=== PATIENT | female | born 1945 | race Caucasian/White ===

== ENCOUNTER → 2016-12-09 | Outpatient (CLI) | payer OTHER ==
[~2016-12-09] MED LIST: ASPI325T39 PO; SIMV10TA2 PO
--- NOTE | 2016-12-09 16:38 | MAMMOGRAPHY REPORT ---
BILATERAL DIGITAL SCREENING MAMMOGRAM WITH CAD: 12/09/2016 CLINICAL HISTORY: Routine screening examination. TECHNIQUE: Bilateral CC and MLO views were obtained. Current study was also evaluated with a Comput er Aided Detection (CAD) system. COMPARISON: Comparison is made to exams dated: 12/07/2015 mammogram, 12/05/2014 mammogram - [facility], and 11/22/2013 mammogram. BREAST COMPOSITION: The tissue of both breasts is heterogeneously dense, which may obscure small ma sses. FINDINGS: There are mild vascular calcifications in the breasts. A nodular asymmetry in the medial left breast appears similar on all available prior mammograms dating back to at least 03/08/2010, t herefore likely benign. No new suspicious mass, architectural distortion or cluster of microcalcifi cations is seen. IMPRESSION: ACR BI-RADS CATEGORY 1: NEGATIVE There is no mammographic evidence of malignancy. A 1 year screening mammogram is recommended. The p atient will receive written notification of the results. Approximately 10% of breast cancers are not detected with mammography. A negative mammographic repor t should not delay biopsy if a clinically suggestive mass is present. Gladys Woodard M.D. ay/:12/09/2016 16:01:06 Quality Control Associate: Trudi MORRIS(Elaine)(Naren), [facility] letter sent: Normal 1/2 BI-RADS Code: ACR BI-RADS Category 1: Negative
== END | disposition home or self-care (01) ==
LOC: C.MAMM 10:24
PROVIDERS: ATTEND Family Medicine
DX: Z12.31 Encounter for screening mammogram for malignant neoplasm of breast (principal)

== ENCOUNTER → 2016-12-09 | Outpatient (CLI) | payer OTHER ==
--- NOTE | 2016-12-09 12:55 | DIAGNOSTIC IMAGING REPORT ---
CT OF THE CHEST WITHOUT IV CONTRAST CLINICAL HISTORY: Multiple pulmonary nodules. COMPARISON STUDY: Chest CT December 16, 2015. CT DOSE: 262.40 mGycm TECHNIQUE: Axial images of the chest were obtained without IV contrast. Images were reviewed in the axial, sagittal, and coronal planes. IV contrast was not administered for this examination. FINDINGS: No enlarged axillary, mediastinal or hilar lymph nodes are present. The heart is mildly enlarged. This extensive coronary artery calcification. There is mitral annular calcification. There is no pericardial effusion. Groundglass opacity suggest atelectasis. Several pulmonary nodules are unchanged since CT of December 16, 2015. These include a 7 mm right middle lobe nodule shown on image 135 of 271, a 4 mm left lower lobe nodule shown image 177 and a 3 mm left lower lobe nodule shown image 179. A partially calcified subpleural 4 mm right lower lobe nodule is unchanged. There are no new nodules. Central airways are patent. Bony thorax and upper abdomen are unremarkable on this unenhanced study. IMPRESSION: No change in several pulmonary nodules since exam of December 16, 2015. These are low suspicion but remain indeterminate and a follow-up chest CT in one year is recommended. Electronically signed by: Liu San M.D. 12/09/2016 12:54 PM Dictated Date/Time: 12/09/2016 12:49 PM
== END | disposition home or self-care (01) ==
LOC: C.CTS 11:12
PROVIDERS: ATTEND Family Medicine
DX: R91.8 Other nonspecific abnormal finding of lung field (principal); Z12.31 Encounter for screening mammogram for malignant neoplasm of breast

== ENCOUNTER → 2017-08-31 | Outpatient (CLI) | payer OTHER ==
[2017-08-31 12:30] LABS: BASO % 1.3 %; BASO ABS # 0.07 K/uL (0-0.2); COMPLETE YES; EOS % 1.9 %; IG% 0.2 %; LYMPH % 28.5 %; MEAN CELL VOLUME 93.1 fL (80-100); MEAN CORPUSCULAR HEMOGLOBIN 32.4 pg (25-34); MEAN CORPUSCULAR HGB CONC 34.7 g/dl (32-36); MEAN PLATELET VOLUME 10.6 fL (7.4-10.4); MONO % 7.2 %; NEUT % 60.9 %; PLATELET COUNT 289 K/uL (130-400); RED BLOOD COUNT 4.08 M/uL (4.2-5.4); WHITE BLOOD COUNT 5.27 K/uL (4.8-10.8)
[2017-08-31 13:32] LABS: ALT/SGPT 28 U/L (12-78); AST/SGOT 16 U/L (15-37); BLOOD UREA NITROGEN 14 mg/dl (7-18); BUN/CREATININE RATIO 16.1 (10-20); CALCIUM 8.9 mg/dl (8.5-10.1); CARBON DIOXIDE 29 mmol/L (21-32); CHLORIDE 102 mmol/L (98-107); CHOLESTEROL 191 mg/dl (0-200); CREATININE 0.86 mg/dl (0.60-1.20); GLUCOSE 96 mg/dl (70-99); POTASSIUM 4.5 mmol/L (3.5-5.1); SODIUM 136 mmol/L (136-145)
[2017-08-31 13:42] LABS: ALB/GLOB RATIO 1.2 (0.9-2); ALKALINE PHOSPHATASE 74 U/L (45-117); CHOLESTEROL/HDL RATIO 2.5; HDL CHOLESTEROL 77 mg/dl; LDL CHOLESTEROL CALCULATED 94 mg/dl; THYROID STIMULATING HORMONE 0.704 uIu/ml (0.300-4.500); TRIGLYCERIDES 100 mg/dl (0-150); VERY LOW DENSITY LIPOPROT CALC 20 mg/dl
== END | disposition home or self-care (01) ==
LOC: C.LABMFLN 10:31
PROVIDERS: ATTEND Family Medicine
DX: Z51.81 Encounter for therapeutic drug level monitoring (principal); Z79.899 Other long term (current) drug therapy; E78.5 Hyperlipidemia, unspecified

== ENCOUNTER → 2017-12-10 | Outpatient (CLI) | payer OTHER ==
--- NOTE | 2017-12-10 10:49 | DIAGNOSTIC IMAGING REPORT ---
CT SCAN OF THE CHEST WITHOUT IV CONTRAST CLINICAL HISTORY: Pulmonary nodules. COMPARISON STUDY: Chest CT scans dated 12/09/2016 and 12/16/2015. TECHNIQUE: CT scan of the thorax was performed from the thoracic inlet to the upper abdomen. Images are reviewed in the axial, sagittal, and coronal planes. IV contrast was not administered for this examination as per the referring clinician. A dose lowering technique was utilized adhering to the principles of ALARA. CT DOSE: 327.54 mGycm FINDINGS: Thyroid: Imaged portions of the thyroid gland are normal in size and attenuation. Thoracic aorta: There is mild atherosclerotic calcification of the thoracic aorta, which is normal in caliber and demonstrates standard 3-vessel arch anatomy. Heart: The heart is mildly enlarged and without pericardial effusion. The coronary arteries and mitral annulus are densely calcified. Lungs and pleural spaces: The trachea and central airways are clear. There is no airspace consolidation or pleural effusion. Dependent atelectasis is observed. Scattered calcified granulomas are identified. There is an 7 mm right middle lobe pulmonary nodule seen image #130. 5 mm and 4 mm pulmonary nodules are seen at the left lung base on images #187 and #188. No new pulmonary nodule is identified. Mediastinum: There is no mediastinal lymphadenopathy. Mechelle: Not well assessed without IV contrast. Axillae: There is no axillary lymphadenopathy. Upper abdomen: There are small calcified hepatic granulomas. Partially visualized upper abdominal viscera is otherwise within normal limits. Skeletal structures: The skeletal structures are osteopenic. Degenerative change is noted in the shoulders and thoracic spine. No lytic or blastic bony lesions are seen. IMPRESSION: 1. There are 3 pulmonary nodules identified measure up to 7 mm as detailed above. These have not significantly changed in size dating back to 12/16/2015 and are of doubtful significance given 2 years of stability. 2. No new pulmonary nodule is identified. 3. No airspace consolidation or pleural effusion is identified. 4. Cardiomegaly. Electronically signed by: Keo Brown M.D. 12/10/2017 10:48 AM Dictated Date/Time: 12/10/2017 10:33 AM
== END | disposition home or self-care (01) ==
LOC: C.CTS 09:25
PROVIDERS: ATTEND Family Medicine
DX: R91.8 Other nonspecific abnormal finding of lung field (principal); Z78.0 Asymptomatic menopausal state; I51.7 Cardiomegaly

== ENCOUNTER → 2017-12-10 | Outpatient (CLI) | payer OTHER ==
--- NOTE | 2017-12-11 07:20 | MAMMOGRAPHY REPORT ---
BILATERAL DIGITAL SCREENING MAMMOGRAM TOMOSYNTHESIS WITH CAD: 12/10/2017 CLINICAL HISTORY: Routine screening. TECHNIQUE: Breast tomosynthesis in addition to standard 2D mammography was performed. Current study was also evaluated with a Computer Aided Detection (CAD) system. COMPARISON: Comparison is made to exams dated: 12/09/2016 mammogram, 12/07/2015 mammogram, 12/05/2014 m ammogram - [facility], 11/22/2013 mammogram, 09/17/2012 mammogram, and 08/13/2011 mamm ogram. BREAST COMPOSITION: The tissue of both breasts is heterogeneously dense, which may obscure small mas ses. FINDINGS: No suspicious masses, calcifications, or areas of architectural distortion are noted in ei ther breast. There has been no significant interval change compared to prior exams. IMPRESSION: ACR BI-RADS CATEGORY 1: NEGATIVE There is no mammographic evidence of malignancy. A 1 year screening mammogram is recommended. The pa tient will receive written notification of the results. Approximately 10% of breast cancers are not detected with mammography. A negative mammographic report should not delay biopsy if a clinically suggestive mass is present. Tonia Harrington M.D. /:12/10/2017 15:03:48 Traffic Rate Clerk: Yoli MORRIS(Elaine)(M), [facility] letter sent: Normal 1/2 BI-RADS Code: ACR BI-RADS Category 1: Negative
== END | disposition home or self-care (01) ==
LOC: C.MAMM 10:23
PROVIDERS: ATTEND Family Medicine
DX: Z12.31 Encounter for screening mammogram for malignant neoplasm of breast (principal); M85.88 Other specified disorders of bone density and structure, other site

== ENCOUNTER 2020-03-02 16:12 | Observation (INO) ==
[2020-03-02] MEDS ORDERED: OPTIRAY 320 125ml IV PRN (17:42)
[2020-03-02 17:50] LABS: Basophils # (auto) 0.05 K/uL (0-0.2); Basophils % (auto) 1.2 %; Eosinophils % (auto) 2.5 %; Hematocrit (blood only) 40.7 % (37-47); Hemoglobin 13.6 g/dL (12.0-16.0); Lymphocytes # (auto) 1.17 K/uL (1.2-3.4); Lymphocytes % (auto) 28.7 %; Mean Corpuscular Hemoglobin 31.2 pg (25-34); Mean Corpuscular Hgb Conc 33.4 g/dL (32-36); Mean Corpuscular Volume 93.3 fL (80-100); Mean Platelet Volume 10.4 fL (7.4-10.4); Monocytes # (auto) 0.47 K/uL (0.11-0.59); Monocytes % (auto) 11.5 %; Neutrophils # (auto) 2.29 K/uL (1.4-6.5); Neutrophils % (auto) 56.1 %; Platelet Count 296 K/uL (130-400); RDW Coefficient of Variation 12.9 % (11.5-14.5); RDW Standard Deviation 44.3 fL (36.4-46.3); Red Blood Count 4.36 M/uL (4.2-5.4); White Blood Count 4.08 K/uL (4.8-10.8)
--- NOTE | 2020-03-02 17:50 | Emergency Department Note ---
History of Present Illness General Chief complaint: Stroke/CVA Symptoms Stated complaint: SYMPTOMS OF A TIA Time Seen by Provider: 03/02/20 16:33 Source: patient and family (Spouse who is at bedside) Mode of arrival: ambulatory Limitations: no limitations History of Present Illness This patient comes in after having an episode where her leg right leg gave out after walking. She said it felt diffusely numb and lasted a minute or so. This happened yesterday and also the day before and she had one episode 3 weeks ago. It only involved the right leg. No problems with the arm or face. She had no pain associated with it. No back pain. No change in bowel or bladder function. No fever chills or nausea or vomiting. She did feel dizzy off and on that felt more like a spinning. No exposure to COVID no no flulike symptoms. No diarrhea or blood or melena stool. No headache neck pain or stiffness. No difficulty speaking or swallowing or change in her vision. At present she is asymptomatic and is able ambulate without any difficulties had no neurologic complaints or deficits. Home Medications Home Medications Medication Instructions Recorded Confirmed Type apixaban 2.5 mg tablet 2.5 mg PO BID #180 tab 02/14/20 Rx simvastatin 10 mg tablet 10 mg PO QPM #90 tab 02/14/20 Rx sulfamethoxazole 800 1 tab PO BID 3 Days #6 tab 02/27/20 02/27/20 Rx mg-trimethoprim 160 mg tablet Allergies Allergy/AdvReac Type Severity Reaction Status Date / Time hydrocodone Allergy Mild rash Verified 08/29/19 11:28 medroxyprogesterone Allergy Mild rash Verified 08/29/19 11:28 oxycodone Allergy Mild rash Verified 08/29/19 11:28 Penicillins Allergy Mild rash Verified 08/29/19 11:28 BEE STINGS Allergy Mild rash Uncoded 08/29/19 11:28 Past Med/Surg History Medical History Colon polyps Factor V Leiden Mitral regurgitation Osteopenia Urinary incontinence Varicose veins of both lower extremities Surgical History H/O colonoscopy History of bladder surgery S/P shoulder surgery S/P tubal ligation Social History marital status: Current Living Situation: Spouse current occupational status: retired Feels Safe at Home: Yes Smoking Status: Never smoker Hx Alcohol Use: No Hx Substance Use: No Dental Care, Regularly: Yes Seatbelt Use: always Review of Systems A total of 10 systems reviewed and were otherwise negative Physical Exam Vital Signs Vital Signs - 24 hr 03/02/20 16:22 03/02/20 16:27 03/02/20 17:20 Temperature 36.9 C Temperature Source Oral Pulse Rate 78 79 Pulse Rate from SpO2 Sensor Respiratory Rate 18 16 Respiratory Effort / Characteristics Non-Labored Spontaneous Respiratory Depth Normal Respiratory Pattern Regular Blood Pressure 155/85 H Blood Pressure Mean 108 Blood Pressure Position Sitting Pulse Oximetry 97 98 Oxygen Delivery Method Room Air Room Air Sepsis Recent Fever Within 48 Hours No Sepsis New/Unexplained Change in Mental Status No Sepsis Action Taken by Nursing No Action Required 03/02/20 17:30 03/02/20 17:40 03/02/20 17:57 Temperature Temperature Source Pulse Rate 80 76 83 Pulse Rate from SpO2 Sensor 83 Respiratory Rate 17 14 16 Respiratory Effort / Characteristics Respiratory Depth Respiratory Pattern Blood Pressure Blood Pressure Mean Blood Pressure Position Pulse Oximetry 96 Oxygen Delivery Method Sepsis Recent Fever Within 48 Hours Sepsis New/Unexplained Change in Mental Status Sepsis Action Taken by Nursing 03/02/20 18:00 03/02/20 18:10 03/02/20 18:20 Temperature Temperature Source Pulse Rate 82 81 78 Pulse Rate from SpO2 Sensor 81 81 78 Respiratory Rate 15 13 14 Respiratory Effort / Characteristics Respiratory Depth Respiratory Pattern Blood Pressure Blood Pressure Mean Blood Pressure Position Pulse Oximetry 99 99 97 Oxygen Delivery Method Sepsis Recent Fever Within 48 Hours Sepsis New/Unexplained Change in Mental Status Sepsis Action Taken by Nursing 03/02/20 18:25 03/02/20 18:30 03/02/20 18:31 Temperature Temperature Source Pulse Rate 80 78 78 Pulse Rate from SpO2 Sensor 80 79 79 Respiratory Rate 15 16 16 Respiratory Effort / Characteristics Respiratory Depth Respiratory Pattern Blood Pressure 177/105 H 173/95 H Blood Pressure Mean 126 125 Blood Pressure Position Pulse Oximetry 98 100 98 Oxygen Delivery Method Sepsis Recent Fever Within 48 Hours Sepsis New/Unexplained Change in Mental Status Sepsis Action Taken by Nursing 03/02/20 18:40 03/02/20 18:50 03/02/20 19:00 Temperature Temperature Source Pulse Rate 77 78 82 Pulse Rate from SpO2 Sensor 77 78 83 Respiratory Rate 18 14 17 Respiratory Effort / Characteristics Respiratory Depth Respiratory Pattern Blood Pressure 197/108 H Blood Pressure Mean 140 Blood Pressure Position Pulse Oximetry 99 99 99 Oxygen Delivery Method Sepsis Recent Fever Within 48 Hours Sepsis New/Unexplained Change in Mental Status Sepsis Action Taken by Nursing 03/02/20 19:01 03/02/20 19:10 03/02/20 19:20 Temperature Temperature Source Pulse Rate 82 78 78 Pulse Rate from SpO2 Sensor 82 79 78 Respiratory Rate 18 14 17 Respiratory Effort / Characteristics Respiratory Depth Respiratory Pattern Blood Pressure Blood Pressure Mean Blood Pressure Position Pulse Oximetry 99 97 98 Oxygen Delivery Method Sepsis Recent Fever Within 48 Hours Sepsis New/Unexplained Change in Mental Status Sepsis Action Taken by Nursing 03/02/20 19:30 03/02/20 19:31 03/02/20 19:40 Temperature Temperature Source Pulse Rate 73 77 80 Pulse Rate from SpO2 Sensor 74 76 80 Respiratory Rate 16 15 18 Respiratory Effort / Characteristics Respiratory Depth Respiratory Pattern Blood Pressure 178/103 H Blood Pressure Mean 136 Blood Pressure Position Pulse Oximetry 100 97 98 Oxygen Delivery Method Sepsis Recent Fever Within 48 Hours Sepsis New/Unexplained Change in Mental Status Sepsis Action Taken by Nursing 03/02/20 19:50 Temperature Temperature Source Pulse Rate 75 Pulse Rate from SpO2 Sensor 75 Respiratory Rate 13 Respiratory Effort / Characteristics Respiratory Depth Respiratory Pattern Blood Pressure Blood Pressure Mean Blood Pressure Position Pulse Oximetry 97 Oxygen Delivery Method Sepsis Recent Fever Within 48 Hours Sepsis New/Unexplained Change in Mental Status Sepsis Action Taken by Nursing General: Well developed well nourished ill-appearing older female who appears in no acute distress, breathing comfortably on room air. Normal speech HEENT: Normal cephalic atraumatic. Pupils are equal round and reactive to light. Extraocular movements are intact. Oropharynx is pink with moist mucous membranes. No swelling of the mouth lips or tongue. Neck: Supple with a midline trachea. No meningeal signs or stiffness, no JVD or bruits. No Stridor. Chest: Clear to auscultation bilaterally. No wheezes or rhonchi. No increased work of breathing. Heart: Regular rate and rhythm without murmurs or gallops. Abdomen: Soft nontender, nondistended without rebound guarding or rigidity. Extremities: No cyanosis clubbing or edema. No calf tenderness or assymetry Spine/Back. Non tender to palpation. No CVA tenderness Skin: Good turgor without rashes. Neurologic exam: Cranial nerves two through 12 are intact. Motor and sensation are intact and symmetrical throughout. Normal gait. Normal heel-to-toe gait. Negative Romberg. No tremor. Finger-nose intact. Course Administered Medications Ioversol (Optiray 320 125ml) 120 ml IV ONCE PRN PRN Reason: Interaction Checking Stop: 03/06/20 17:41 Last Admin: 03/02/20 17:43 Dose: 120 ml Documented by: [id number] Medical Decision Making Differential Diagnosis TIA, intracranial hemorrhage, CVA, musculoskeletal, lumbar disc disease, electrolyte or metabolic abnormality, infection, trauma Medical Records Attestation: I reviewed the patient's medical records. Home Medications Current Medication List: was personally reviewed by me Laboratory Data Attestation: I reviewed the patient's lab results. Result diagrams: 03/02/20 17:31 03/02/20 17:31 Lab Results 03/02/20 03/02/20 03/02/20 Range/Units 17:31 17:31 17:31 WBC 4.08 L (4.8-10.8) K/uL RBC 4.36 (4.2-5.4) M/uL Hgb 13.6 (12.0-16.0) g/dL Hct 40.7 (37-47) % MCV 93.3 (80-100) fL MCH 31.2 (25-34) pg MCHC 33.4 (32-36) g/dL RDW Std Deviation 44.3 (36.4-46.3) fL RDW Coeff of Star 12.9 (11.5-14.5) % Plt Count 296 (130-400) K/uL MPV 10.4 (7.4-10.4) fL Immature Gran % (Auto) 0.0 % Neut % (Auto) 56.1 % Lymph % (Auto) 28.7 % Roane % (Auto) 11.5 % Eos % (Auto) 2.5 % Baso % (Auto) 1.2 % Immature Gran # (Auto) 0.00 (0.00-0.02) K/uL Neut # (Auto) 2.29 (1.4-6.5) K/uL Lymph # (Auto) 1.17 L (1.2-3.4) K/uL Roane # (Auto) 0.47 (0.11-0.59) K/uL Eos # (Auto) 0.10 (0-0.5) K/uL Baso # (Auto) 0.05 (0-0.2) K/uL PT 10.9 (9.0-12.0) Seconds INR 1.0 (0.9-1.1) APTT 26.6 (21.0-31.0) Seconds PTT Ratio 1.0 Sodium 135 L (136-145) mmol/L Potassium 4.2 (3.5-5.1) mmol/L Chloride 102 (98-107) mmol/L Carbon Dioxide 26 (21-32) mmol/L Anion Gap 7.0 (3-11) BUN 19 H (7-18) mg/dl Creatinine 1.16 (0.6-1.2) mg/dl Est Cr Clr Drug Dosing 37.5 ml/min Est GFR ( Amer) 53.3 Est GFR (Non-Af Amer) 46.0 BUN/Creatinine Ratio 16.3 (10-20) Glucose 87 (70-99) mg/dl Calcium 8.9 (8.5-10.1) mg/dl Magnesium 2.3 (1.8-2.4) mg/dl Total Bilirubin 0.4 (0.2-1) mg/dl AST 20 (15-37) U/L ALT 33 (12-78) U/L Alkaline Phosphatase 84 (45-117) U/L Troponin I < 0.015 (0-0.045) ng/ml Total Protein 7.9 (6.4-8.2) gm/dl Albumin 3.9 (3.4-5.0) gm/dl Globulin 4.0 (2.5-4.0) gm/dl Albumin/Globulin Ratio 1.0 (0.9-2) Imaging Data Radiologist's Impression: CAT scan of the head, CTA of the head and neck iMPRESSION: 1. There is no hemorrhage, mass effect, or evidence of acute territorial ischemia by CT criteria. 2. 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 3. Otherwise unremarkable CT angiogram of the brain. 4. There is greater than 50% stenosis of the left subclavian artery below the thoracic outlet. Note that this may place the patient at risk for steal phenomenon. 5. Otherwise unremarkable CT angiogram of the neck. Blood Pressure Blood Pressure Findings: Elevated blood pressure Blood Pressure Disposition: elevated BP felt to be situational MDM Narrative This patient comes in as scribed above she has had 3 brief episodes where her right leg felt weak it lasted briefly and occurred the last 2 evenings after walking. She also episode 3 weeks ago there is no other associated symptoms. Because she does have a history of factor V Leiden and is on Eliquis and I do think she needs extensive stroke/neurovascular work-up. Her leg itself is normal and well-perfused appearing she has a normal neurologic exam. Multiple blood testing was obtained. IV access was established to do a CAT scan of her head as well as CT of the head and neck. She was reassessed frequently. EKG was also obtained and did not show any ischemic changes. Troponin was also negative. She is no acute electrolyte or metabolic abnormality. CAT scan of her head shows no acute findings. 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 I do not think is likely causing her symptoms. She also has evidence to suggest subclavian stenosis on the left. She has had no syncope or any symptoms when raising her arms and I do not think this likely causing her symptoms acutely either. She tells me that her both her brother and father had episodes like this and then had a major stroke. While this may be related more to her back or muscles are vascular, I am concerned about a possible TIA as she is had recurrent symptoms. I do think she would benefit from admission/observed observation for further evaluation. She agrees to this and I did consult the [facility] hospitalist to see in the ER for these measures. Impression & Plan TIA (transient ischemic attack), Factor V Leiden, Transient right leg weakness, Dizziness, Subclavian artery stenosis, left Discharge Plan Visit Data Chief Complaint: Stroke/CVA Symptoms Stated Complaint: SYMPTOMS OF A TIA ED Provider: Guy Jane Discharge Problem: TIA (transient ischemic attack), Factor V Leiden, Transient right leg weakness, Dizziness, Subclavian artery stenosis, left Forms Stand Alone Forms: My [facility] [employer] Prescriptions Prescriptions: No Action simvastatin 10 mg tablet 10 mg PO QPM Qty: 90 RF: 3 Eliquis 2.5 mg tablet 2.5 mg PO BID Qty: 180 RF: 3 sulfamethoxazole-trimethoprim [Bactrim DS] 800-160 mg tablet 1 tab PO BID 3 Days Qty: 6 RF: 0
[2020-03-02 18:03] LABS: Partial Thromboplastin Time 26.6 Seconds (21.0-31.0); Prothrombin Time 10.9 Seconds (9.0-12.0)
[2020-03-02 18:06] LABS: Alanine Aminotransferase 33 U/L (12-78); Albumin Level 3.9 gm/dl (3.4-5.0); Aspartate Aminotransferase 20 U/L (15-37); BUN Creatinine Ratio 16.3 (10-20); Blood Urea Nitrogen 19 mg/dl (7-18); Calcium 8.9 mg/dl (8.5-10.1); Carbon Dioxide 26 mmol/L (21-32); Chloride 102 mmol/L (98-107); Creatinine Clr Calc Pharmacy 37.5 ml/min; Est GFR (African American) 53.3; Glucose 87 mg/dl (70-99); Magnesium 2.3 mg/dl (1.8-2.4); Potassium 4.2 mmol/L (3.5-5.1); Sodium 135 mmol/L (136-145)
[2020-03-02 18:11] LABS: Alkaline Phosphatase 84 U/L (45-117); Bilirubin,Total 0.4 mg/dl (0.2-1); Total Protein 7.9 gm/dl (6.4-8.2); Troponin I < 0.015 ng/ml (0-0.045)
--- NOTE | 2020-03-02 18:24 | CT Scan Report ---
UNENHANCED CT OF THE BRAIN; CT ANGIOGRAM OF THE BRAIN; CT ANGIOGRAM OF THE NECK CLINICAL HISTORY: Strokelike symptoms. Syncope. COMPARISON STUDY: No priors. TECHNIQUE: Unenhanced axial CT scan of the brain is performed. Subsequently, following the IV adminis tration of 120 of Optiray 320, CT angiogram of the head and neck was performed from the aortic arch t o the vertex. Images are reviewed in the axial, sagittal, and coronal planes. 3-D MIPS images are cre ated and assessed. IV contrast was administered without complication. All measurements were calculate d based on NASCET criteria. A dose lowering technique was utilized adhering to the principles of ALA RA. CT DOSE: 1031.17 mGy.cm FINDINGS: Brain parenchyma: There is age-related involutional change noting mild subcortical and periventricula r microangiopathic disease. There is no hemorrhage, mass effect, or evidence of acute territorial isc hemia by CT criteria. There is no evidence of enhancing mass lesion on the angiogram phase images. Th e ventricles, sulci, and cisterns are prominent secondary to involutional change. Aguero-white matter d ifferentiation is preserved. No extra-axial fluid collection is seen. Mineralization is noted in the basal ganglia. Thoracic aorta: Visualized portions of the thoracic aorta are normal in caliber. The aortic arch demo nstrates standard 3-vessel anatomy. Right carotid arterial system: The right common carotid artery is widely patent, as are the right int ernal and external carotid arteries. Atherosclerotic plaque is noted in the carotid bulb. Left carotid arterial system: The left common carotid artery is widely patent, as are the left internal sales engineer al and external carotid arteries. Mild plaque is noted in the carotid bulb. Vertebral arteries: The vertebral arteries are widely patent bilaterally and codominant. Subclavian arteries: There is greater than 50% stenosis of the left subclavian artery below the thora cic outlet as seen on image #84. The subclavian arteries are otherwise patent bilaterally. Intracranial vasculature: There is atherosclerotic calcification of the cavernous carotid and vertebr al arteries. The internal carotid arteries are patent at the skull base, as are the anterior and midd le cerebral arteries bilaterally. The vertebrobasilar system and posterior cerebral arteries are wide ly patent. The vertebral arteries are codominant. There is a 3 mm aneurysm arising inferiorly at the origin of the left middle cerebral artery seen on axial image #84. A similar-appearing 3 mm aneurysm is seen on the right on axial image #84. No additional aneurysm is identified. There is no high-grade stenosis or focal vessel cut off seen throughout the intracranial circulation. Jugular veins: Patent bilaterally. Dural sinuses: Patent. Lung apices: Partially visualized upper lobe lung parenchyma appears clear. Soft tissues: The visualized pharyngeal soft tissues are normal in appearance noting angiographic pha se technique. The oropharyngeal airway appears widely patent. Low-attenuation thyroid nodules measure up to 11 mm. The salivary glands are normal in appearance. No cervical lymphadenopathy is seen. Skeletal structures: The skeletal structures are osteopenic. The calvarium appears intact. The cervic al spine is maintained noting multilevel spondylosis. No lytic or blastic lesion is seen limits. Orbits: The bony orbits are intact. Orbital contents are normal as imaged. Sinuses and mastoids: The paranasal sinuses are clear. There is a trace left mastoid effusion. The ri ght mastoid air cells are well pneumatized. IMPRESSION: 1. There is no hemorrhage, mass effect, or evidence of acute territorial ischemia by CT criteria. 2. There are bilateral 3 mm aneurysms identified arising inferiorly at the origins of the middle cere bral arteries. 3. Otherwise unremarkable CT angiogram of the brain. 4. There is greater than 50% stenosis of the left subclavian artery below the thoracic outlet. Note t hat this may place the patient at risk for steal phenomenon. 5. Otherwise unremarkable CT angiogram of the neck. ACT 112: Negative or not required by law. Electronically signed by: Keo Brown M.D. 03/02/2020 6:23 PM
--- NOTE | 2020-03-02 20:20 | History & Physical Report ---
Date of Service March 02, 2020 Assessment & Plan (1) Transient right leg weakness: 74-year-old female with past medical history significant for hyperlipidemia, factor V Leiden admitted for right lower extremity weakness. RLE weakness: Appears to be transient; TIA vs. CVA vs. lumbar radiculopathy vs. hypertensive emergency. Permissive HTN for now. Patient may have underlying hypertension that should be followed up by PCP. MRI brain, XR lumbar spine ordered. TTE, Hgb A1c, lipid panel AM. Atorvastatin 80mg started. Neuro consult placed for RLE intermittent weakness and b/l 3mm RCA aneurysm. Telemetry for continuous cardiac monitoring. Subclavian artery stenosis: No symptoms suggestive of subclavian steal syndrome on exam. Mitral regurgitation: Systolic murmur noted on exam. TTE AM as above. Factor V Leiden: Continue Eliquis 2.5mg BID. HLD: Atorvastatin as above. Code Status: FULL CODE FEN/GI: NPO now for MRI DVT ppx: Eliquis, SCDs Dispo: Med/Surg with Telemetry, observation, Neuro consult AM (2) Factor V Leiden: (3) Hyperlipidemia: (4) Hypertension: (5) Subclavian artery stenosis, left: (6) Mitral regurgitation: History of Present Illness Chief Complaint: Intermittent right lower extremity weakness Primary Care Provider: Dorene Espino MD 4-year-old female past medical history significant for hypertension, mitral regurgitation, Factor 5 Leiden on Eliquis, hyperlipidemia noted to the ED for 3 separate instances of right lower extremity weakness over the last three weeks. Reports that "every time I walk up a hill near my house I started to have right lower extremity weakness and feeling like Jell-O". This sensation goes away after 1 to 2 minutes. Sensation is never occurred when not walking up that h ill. Associated with dizziness, headache, shortness of breath, chest pain, numbness or tingling, fevers, chills, constipation or diarrhea, nausea or vomiting. Her PCP today who advised her to come to the ER for acute evaluation. Found to be profoundly hypertensive to 170-180s/90-100s. Asymptomatic in the ED. Baseline lab work normal no electrolyte abnormalities no leukocytosis. 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 Given patient's intermittent weakness with a history of coagulopathy, hospitalist service was consulted for admission. On my interview patient continues to be asymptomatic. Reports that her blood pressure at home is normally 120-130s/70-80s. Has a family history of CVA, CAD. Simvastatin since November for total cholesterol >200. Patient denies smoking, infrequent alcohol use, no illicit drugs. Allergies Allergy/AdvReac Type Severity Reaction Status Date / Time hydrocodone Allergy Mild rash Verified 03/02/20 20:32 medroxyprogesterone Allergy Mild rash Verified 03/02/20 20:32 oxycodone Allergy Mild rash Verified 03/02/20 20:33 Penicillins Allergy Mild rash Verified 03/02/20 20:33 BEE STINGS Allergy Mild Anaphylaxis Uncoded 03/02/20 20:45 Home Medications Home Medications Medication Instructions Recorded Confirmed Type apixaban 2.5 mg tablet 2.5 mg PO BID #180 tab 02/14/20 03/02/20 Rx cyanocobalamin (vitamin B-12) 500 mcg PO DAILY 03/02/20 03/02/20 History [id number] serr 1 tab PO DAILY 03/02/20 03/02/20 History [Glucosamine Daily Complex] vitamin E 400 unit PO DAILY 03/02/20 03/02/20 History aspirin 81 mg PO QAM #30 tab 03/03/20 Rx coenzyme Q10 50 mg PO DAILY #30 cap 03/03/20 Rx simvastatin 20 mg PO QPM #90 tab 03/03/20 03/02/20 Rx Past Med/Surg History Medical History Colon polyps Factor V Leiden (Acute) Mitral regurgitation Osteopenia Urinary incontinence Varicose veins of both lower extremities Surgical History H/O colonoscopy History of bladder surgery S/P shoulder surgery S/P tubal ligation Family History Mother , age 85 of a stroke Stroke Father , age 77 of an [place] Myocardial infarction Other Family history non-contributory Social History Preferred Language: Thai Communication Ability: Effective Fork Truck Driver Required: No Beliefs That Will Affect Care: None marital status: Current Living Situation: Spouse current occupational status: retired 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 Feels Safe at Home: Yes Smoking Status: Never smoker Second Hand Exposure: No ; Hx Alcohol Use: No Hx Substance Use: No Dental Care, Regularly: Yes Seatbelt Use: always Review of Systems Review of Systems: All systems reviewed & are unremarkable except as noted in HPI & below Constitutional: no fever, no chills and no malaise Respiratory: no cough and no dyspnea Cardiovascular: no chest pain, no palpitations and no edema Gastrointestinal: no abdominal pain, no constipation and no diarrhea/loose stools Genitourinary: no dysuria and no hematuria Physical Exam Constitutional: WD/WN, vitals as above Eyes: PERRL, conjunctivae normal, anicteric sclerae ENMT: external ear and nose normal, oropharynx normal Neck: normal visual inspection Respiratory: normal respiratory effort, lungs clear to auscultation Cardiovascular: Rate/Rhythm: regular rate and regular rhythm Heart Sounds: + murmur (2/6 systolic murmur best eard over L mid sternal border) Gastrointestinal (Abdomen): normal bowel sounds, soft, nontender, no hepatosplenomegaly Musculoskeletal: no cyanosis or clubbing, extremities motor strength 5/5 Skin: no rashes, warm and dry Neurologic: AAOx3, normal speech. PERRLA, EOMI, no nystagmus. Normal visual acuity bilaterally. Bilateral UE, LE, and face without sensory or motor deficits. DTRs normal. II- XII intact bilaterally. No pronator drift. No tremor. Psychiatric: A+Ox3, euthymic affect Results & Data Results & Data ([facility]) Vital Signs (Past 12 Hours) Vital Signs Temp Pulse Resp BP Pulse Ox 03/02/20 19:50 75 13 97 03/02/20 19:40 80 18 98 03/02/20 19:31 77 15 97 03/02/20 19:30 73 16 178/103 H 100 03/02/20 19:20 78 17 98 03/02/20 19:10 78 14 97 03/02/20 19:01 82 18 99 03/02/20 19:00 82 17 197/108 H 99 03/02/20 18:50 78 14 99 03/02/20 18:40 77 18 99 03/02/20 18:31 78 16 98 03/02/20 18:30 78 16 173/95 H 100 03/02/20 18:25 80 15 177/105 H 98 03/02/20 18:20 78 14 97 03/02/20 18:10 81 13 99 03/02/20 18:00 82 15 99 03/02/20 17:57 83 16 96 03/02/20 17:40 76 14 03/02/20 17:30 80 17 03/02/20 17:20 79 16 03/02/20 16:27 98 03/02/20 16:22 36.9 C 78 18 155/85 H 97 Code Status & VTE Plan VTE Prophylaxis Plan VTE Prophylaxis will be ordered: Yes Supervising Physician Co-Signing Physician Notes Attending addendum: I have physically seen this patient, have supervised the medical residents activities, and agree with the H&P unless as otherwise noted. Assessment and Plan: Right lower extremity weakness- Differential including TIA versus CVA versus lumbar radiculopathy. CT brain, CTA head neck-bilateral 3 mm aneurysm at the MCA origin. Left subclavian artery greater than 50% narrowing, question contribution to subclavian steal, but no symptoms apparent. Order MRI brain without contrast High-dose statin atorvastatin 80 mg daily Permissive hypertension. Check hemoglobin A1c and fasting lipid panel Stroke without TPA order set. Consult neurology. Factor V Leiden/DVT- Continue Eliquis 2.5 mg p.o. twice daily Hyperlipidemia- continue atorvastatin Subclavian artery stenosis >50%- monitor for symptoms of subclavian steal. None seen at this time. Remainder of orders and notations as noted. Resident Activity Tracking Resident Involvement: Resident Care Provided Care Provided: Adult Hospital Medicine
[2020-03-02] MEDS ORDERED: GADOBUTROL 65ML VIAL IV PRN (21:18)
--- NOTE | 2020-03-02 21:27 | Magnetic Resonance Report ---
MRI OF THE BRAIN COMBO CLINICAL HISTORY: Right lower extremity weakness. COMPARISON STUDY: CT of the brain performed the same day 03/02/2020. TECHNIQUE: MRI of the brain was performed utilizing various T1 and T2-weighted sequences in the axial , sagittal, and coronal planes. Contrast-enhanced sequences were acquired following the administratio n of 7 cc of Gadavist. FINDINGS: Brain parenchyma: There is age-related involutional change noting mild to moderate subcortical and pe riventricular microangiopathic disease. There is no hemorrhage or mass effect. There is no restricted diffusion to suggest acute ischemia. No enhancing mass lesion is identified on the postcontrast imag es. Aguero-white matter differentiation is preserved. No extra-axial fluid collection is seen. The cere bellar tonsils are normal in configuration. Ventricles, sulci, and cisterns: Prominent secondary to involutional change. Pituitary and sella: Unremarkable. Intracranial vasculature: Normal flow voids are maintained at the skull base. Orbits: The bony orbits are grossly intact. Orbital contents are normal in appearance. Sinuses and mastoids: There are small left and trace right mastoid effusions. The paranasal sinuses a re clear. Calvarium: Unremarkable. Cervical cord: Partially visualized cervical spinal cord is normal in morphology and signal intensity . IMPRESSION: No acute intracranial abnormality. ACT 112: Negative or not required by law. Electronically signed by: Keo Brown M.D. 03/02/2020 9:25 PM
--- NOTE | 2020-03-02 21:35 | XRay Report ---
LUMBAR SPINE 3 VIEWS CLINICAL HISTORY: Right lower extremity weakness. FINDINGS: 3 views of the lumbar spine are obtained. No prior studies are available for comparison at the time of dictation. The skeletal structures are osteopenic. There is no radiographic evidence of fracture or malalignment. Vertebral body height is maintained. There is minimal anterolisthesis at L 4-L5. Alignment is otherwise preserved. Mild lumbar dextrocurvature centered at L3. The transverse an d spinous processes are intact. Small anterior and lateral marginal osteophytes are seen throughout. The intervertebral disc spaces are maintained. Mild facet arthropathy is noted in the lower lumbar re gion. The visualized bony pelvis appears intact. There is a nonobstructed abdominal bowel gas pattern . Excreted IV contrast fills the renal collecting systems and bladder. Atherosclerotic calcification is noted in the abdominal aorta. IMPRESSION: No acute bony abnormality is seen involving the lumbar spine. ACT 112: Negative or not required by law. Electronically signed by: Keo Brown M.D. 03/02/2020 9:34 PM
[2020-03-02] MEDS ORDERED: ONDANSETRON INJ 2 MG/ML 2 ML VIAL IV PRN (23:08)
[2020-03-02] MEDS ORDERED: POLYETHYLENE (MIRALAX) 17 GM PACK PO PRN (23:08)
[2020-03-02] MEDS ORDERED: PHARMACIST DISCHARGE MED REC CONSULT PRN (23:08)
[2020-03-03] MEDS: APIXABAN 2.5 MG TAB PO SCH ×2 (00:15→12:02)
[2020-03-03 06:14] LABS: Basophils # (auto) 0.04 K/uL (0-0.2); Basophils % (auto) 1.2 %; Eosinophils # (auto) 0.16 K/uL (0-0.5); Eosinophils % (auto) 4.7 %; Hematocrit (blood only) 39.6 % (37-47); Hemoglobin 13.6 g/dL (12.0-16.0); Lymphocytes # (auto) 1.26 K/uL (1.2-3.4); Lymphocytes % (auto) 37.1 %; Mean Corpuscular Hemoglobin 31.6 pg (25-34); Mean Corpuscular Hgb Conc 34.3 g/dL (32-36); Mean Corpuscular Volume 91.9 fL (80-100); Mean Platelet Volume 10.6 fL (7.4-10.4); Monocytes # (auto) 0.46 K/uL (0.11-0.59); Monocytes % (auto) 13.5 %; Neutrophils # (auto) 1.48 K/uL (1.4-6.5); Neutrophils % (auto) 43.5 %; Platelet Count 269 K/uL (130-400); RDW Standard Deviation 43.8 fL (36.4-46.3); Red Blood Count 4.31 M/uL (4.2-5.4)
[2020-03-03 07:04] LABS: Calcium 8.9 mg/dl (8.5-10.1); Creatinine Clr Calc Pharmacy 47.6 ml/min; Est GFR (African American) 72.5; Est GFR (Non-African American) 62.5; Potassium 4.1 mmol/L (3.5-5.1)
[2020-03-03 07:13] LABS: Estimated Average Glucose 114 mg/dl; Hemoglobin A1C 5.6 % (4.5-5.6)
[2020-03-03] MEDS ORDERED: ATORVASTATIN 40 MG TAB PO SCH (09:00)
[2020-03-03] MEDS ORDERED: ASPIRIN 81 MG ECTAB PO SCH (09:00)
--- NOTE | 2020-03-03 09:07 | Neurology Consultation ---
Date of Consultation March 03, 2020 Assessment & Plan (1) TIA (transient ischemic attack): (2) Transient right leg weakness: (3) Subclavian artery stenosis, left: (4) Hypertension: Patient has had several very brief episodes over the last 3 weeks of transient right lower extremity weakness (without numbness or pain) lasting up to 10 seconds. Neurologic examination today is unremarkable with no focal findings, meningeal signs, or encephalopathy. The etiology of these events are not readily apparent however I do not believe they represent a peripheral nerve problem. She denies low back pain or radicular symptoms and her exam is quite normal this morning. Transient perfusion issues focally in the brain caused by high blood pressure or other phenomena are possible. Although they are very brief these could be described as transient ischemic attacks. She has 3 mm aneurysms at the origins of the middle cerebral arteries bilaterally of no clinical significance at this time. There is some left subclavian artery stenosis noted by CT angiography. Recommendations: 1. Consider 81 mg aspirin daily. The patient does have old small vessel ischemic changes noted on MRI which would warrant aspirin anyway. 2. Control blood pressure aiming for a mean arterial pressure of approximately 95-100. 3. The patient would be a higher dose statin candidate given her elevated cholesterol 4. I see no need for additional neurologic testing at this time. I can follow up as an outpatient if desired. Overall, I spent a total of 60 minutes with this case including review of records, review of MRI films, direct evaluation patient at bedside, and discussing the case with the patient at bedside, RN at bedside, and Dr. Sargent, including differential diagnosis and treatment options. History of Present Illness Reason for Consultation: Patient is a 74-year-old, who I was asked to see the request of Dr. Weaver, for neurologic consultation regarding episodic leg weakness. Requesting Physician: Dr. Weaver Attending Physician: Gely Sargent MD History of Present Illness Patient has a history of factor 5 Leiden with superficial blood clots over the years and multiple pelvic and left lower extremity blood clots postoperatively in July of 2019 following a urethral sling procedure. This resolved her incontinence of urine. She has been on Eliquis since and has no more blood clots. In the past she was on aspirin but has not been on aspirin for years. The patient is an avid walker exercising about 3 miles 5 days a week doing this early in the morning each time. She was on 1 such walk about 3 weeks ago and coming back to her house ([place]) she was a little fatigued and noted the sudden onset of weakness in the right lower extremity. It has been described as numbness but with careful questioning it is not numb or tingly and wall. It is more of a jelly leg sensation where her knee leeanne and her foot drops. She claims that it lasts for about 3 steps and then resolves. This turns out to be about 10 seconds (or less). She has no low back or leg pain with this and no symptoms in the left leg, both arms, or face. After this episode she feels mildly tired and feels as if she has some moving/swimming sensation in her head very mildly for some hours thereafter. He does not stop her from doing anything she wants to do however. She did not faint or fall. She had no headache, vision problems, speech issues or other symptoms. She did very well until licensed certified orthotist of March 01 when she was coming back from her usual walk going uphill and suddenly had the same episode with the weakness of the right leg lasting the same duration. It was identical to the 1st spell. When she was improved after a few seconds she went home about 30 minutes later while standing in the kitchen she had a 3rd episode. Again no other symptoms occurred and it lasted less than 10 seconds. On March 02 she had her last episode again walking uphill towards her house after the 3 mi walk. This time she may have noted a little bit of warning of the nonspecific lightheadedness for a few seconds. Otherwise the spell was identical to the other 3. She arrived to the emergency room March 02 at 1622 with a temperature 36.7, pu lse 78 regular, respiratory rate 18 irregular, blood pressure 155/85, and O2 saturation 97% Neurologic examination was unremarkable. CBC and Chem profile were unremarkable. CT scan of the head showed no acute changes. CT angiography of the head and neck was remarkable for greater than 50% stenosis of the left subclavian artery and 3 mm aneurysms bilaterally at the origin of the middle cerebral arteries. MRI of the brain showed no acute stroke. There was mild old small vessel ischemic changes and nothing enhanced with contrast. This morning blood pressure is 157/83. CBC and Chem profile were unremarkable. Hemoglobin A1c was 5.6 triglycerides 97 and total cholesterol 208. She is asymptomatic this morning, feeling back to her usual baseline Allergies Allergy/AdvReac Type Severity Reaction Status Date / Time hydrocodone Allergy Mild rash Verified 03/02/20 20:32 medroxyprogesterone Allergy Mild rash Verified 03/02/20 20:32 oxycodone Allergy Mild rash Verified 03/02/20 20:33 Penicillins Allergy Mild rash Verified 03/02/20 20:33 BEE STINGS Allergy Mild Anaphylaxis Uncoded 03/02/20 20:45 Home Medications Home Medications Medication Instructions Recorded Confirmed Type apixaban 2.5 mg tablet 2.5 mg PO BID #180 tab 02/14/20 03/02/20 Rx simvastatin 10 mg tablet 10 mg PO QPM #90 tab 02/14/20 03/02/20 Rx cyanocobalamin (vitamin B-12) 500 mcg PO DAILY 03/02/20 03/02/20 History [id number]-[id number]-[id number] serr 1 tab PO DAILY 03/02/20 03/02/20 History [Glucosamine Daily Complex] vitamin E 400 unit PO DAILY 03/02/20 03/02/20 History Patient History Medical History Colon polyps Factor V Leiden (Acute) Mitral regurgitation Osteopenia Urinary incontinence Varicose veins of both lower extremities Surgical History H/O colonoscopy History of bladder surgery S/P shoulder surgery S/P tubal ligation Family History Mother , age 85 of a stroke Stroke Father , age 77 of an [place] Myocardial infarction Other Family history non-contributory Social History Preferred Language: Slovak Communication Ability: Effective Automatic Dry Starch Operator Required: No Beliefs That Will Affect Care: None marital status: Current Living Situation: Spouse current occupational status: retired 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 Feels Safe at Home: Yes Safety Concerns: Feels Safe At This Time Smoking Status: Never smoker Do You Dip or Chew Tobacco: No ; Second Hand Exposure: No ; Hx Alcohol Use: No Hx Substance Use: No Dental Care, Regularly: Yes Seatbelt Use: always Review of Systems Constitutional: no fever, no fatigue and no weakness Eyes: no diplopia, no eye pain and no worsening vision Ear, Nose, Mouth, Throat: no ear pain, no tinnitus, no hearing loss, no dizziness, no hoarseness and no dysphagia Respiratory: no cough and no dyspnea Cardiovascular: no chest pain, no palpitations and no lightheadedness Gastrointestinal: no abdominal pain, no nausea and no vomiting Genitourinary: no dysuria, no urinary frequency and no urinary incontinence Musculoskeletal: no back pain, no neck pain, no radicular pain, no joint pain and no myalgia Integumentary: no rash and no lesions Neurologic: no gait abnormality, no localized weakness, no generalized weakness, no tingling, no numbness, no tremor(s), no abnormal movements, no headache(s), no abnormal speech, no confusion and no memory loss Psychiatric: no depression, no irritability, no anxiety, no difficulty concentrating, no confusion and no hallucinations Endocrine: no fatigue and no flushing Hematologic / Lymphatic: no easy bleeding and no easy bruising Allergy / Immunological: no urticaria and no problem reported Exam (Neuro) Physical Exam: The patient is right-handed. The patient is awake, alert, and attentive. Speech is normal without any aphasia or dysarthria. She can name objects, repeat phrases, and has normal spontaneous speech. Mentation and thought processes are intact, with orientation to person, place and time, and normal fund of knowledge. Attention and concentration are normal. Mood and affect are normal and appropriate. General appearance and grooming are normal. Short and long-term memory are intact. The discs are sharp with positive venous pulsations bilaterally. There are no exudates, hemorrhages, or blood vessel changes seen. Pupils are 4 mm bilaterally and reactive to light. Extraocular eye muscles are intact without nystagmus. Visual acuity and visual [place] seem normal grossly to confrontation. There are no deficits to sensation in the face in all 3 distributions of the fifth cranial nerve bilaterally. Corneal reflexes are positive bilaterally. Facial strength and symmetry was normal bilaterally. Hearing seems normal to whisper and finger rub bilaterally. Palate moves well without asymmetry. There is normal sternocleidomastoid and trapezius (shoulder shrug) strength bilaterally. Tongue is midline with good strength bilaterally. Neck has a full range of motion without discomfort. There are no cervical bruits bilaterally. There are no cranial or ocular bruits. Heart is without murmur. There is a regular rhythm and rate. Cervical, thoracic, and lumbar spine are nontender to palpation. Gait is narrow based, with good arm swing, turns, and stance. Balance is normal eyes open or closed. The patient can tandem walk without difficulty. The patient can heal and toe walk normally. With outstretched arms there is no drift. There are no resting, postural, or action tremors. There is no ataxia with finger to nose testing. There is good facility in the hands. No other abnormal involuntary movements are noted. Motor strength is 5/5 diffusely in the arms bilaterally including deltoids, biceps, triceps, brachioradialis, wrist flexors and extensors, table operator, and intrinsic hand muscles. Motor strength is 5/5 diffusely in the legs bilaterally including hip flexors, quadriceps, hamstrings, gastrocnemius, tibialis anterior, tibialis posterior, and Peroneii muscles. Toe extensors are normal and there is good bulk in the extensor digitorum brevis muscles bilaterally. The limbs have good tone without rigidity or spasticity. There is no atrophy noted in the muscles. Muscle bulk is normal, there is no tenderness to palpation, no myotonia to percussion, and no fasciculations seen. Sensory examination is intact to touch and pin throughout all 4 limbs diffusely. Reflexes are 1/4 in the biceps, triceps, brachioradialis, quadriceps, and Achilles tendons bilaterally. There is no clonus bilaterally. Toes are downgoing with plantar stimulation bilaterally. Peripheral pulses are present and of normal quality distally in all 4 limbs. There is no peripheral edema noted in the limbs. Results & Data ([facility]) Vital Signs (Past 12 Hours) Vital Signs Temp Pulse Pulse Resp BP BP BP 03/03/20 07:45 36.4 C L 69 20 150/84 H 157/83 H 03/03/20 03:13 36.4 C L 64 18 151/73 H 03/03/20 00:07 36.4 C L 67 18 168/78 H 03/02/20 23:53 36.5 C 67 18 06/19/20 23:08 36.5 C 73 20 183/90 H 03/02/20 22:10 70 15 03/02/20 22:01 66 13 03/02/20 22:00 68 14 169/86 H 03/02/20 21:50 68 14 03/02/20 21:40 76 20 174/92 H Pulse Ox 03/03/20 07:45 94 03/03/20 03:13 96 03/03/20 00:07 96 03/02/20 23:53 95 03/02/20 23:08 94 03/02/20 22:10 97 03/02/20 22:01 96 03/02/20 22:00 96 03/02/20 21:50 95 03/02/20 21:40 94 PG Care Time/CCT Total # of Minutes Spent Total Time Spent with Patient: Total time spent is greater than 50% in coordination of care (as documented) at patient's floor/unit and/or counseling patient: Coding Level of Care Code 04783 OBS Care - Level 3 Diagnoses TIA (transient ischemic attack) G45.9 Transient right leg weakness R29.898 Subclavian artery stenosis, left I77.1 Hypertension I10 Time Spent (min) 60
[2020-03-03] MEDS ORDERED: OPTIRAY 320 125ml IV PRN (10:09)
--- NOTE | 2020-03-03 10:24 | CT Scan Report ---
Study: CT angiogram HISTORY: Lower extremity weakness FINDINGS: Mild scattered atherosclerotic change throughout the arterial structures of the pelvis as w ell as legs bilaterally. No evidence for high-grade or critical stenosis. All major arterial structures are patent. Muscle bundles appear symmetric. No abnormal mass or collection. IMPRESSION: 1. Mild scattered atherosclerotic plaque formation. 2.. No evidence for high-grade or critical stenosis. Electronically signed by: Sandor Toro M.D. 03/03/2020 10:23 AM
--- NOTE | 2020-03-03 11:19 | Electrocardiogram Report ---
Test Reason : Blood Pressure : / mmHG Vent. Rate : 077 BPM Atrial Rate : 077 BPM P-R Int : 174 ms QRS Dur : 084 ms QT Int : 372 ms P-R-T Axes : 063 014 016 degrees QTc Int : 420 ms Normal sinus rhythm Possible Left atrial enlargement Borderline ECG When compared with ECG of 16-DEC-2015 09:31, No significant change was found Confirmed by Juan Nevarez ([id number]) on 03/03/2020 11:18:43 AM Referred By: REFERRED SELF Confirmed By:Juan Nevarez
--- NOTE | 2020-03-03 13:25 | XCELERA ---
[id number]
[2020-03-03] MEDS ORDERED: STROKE PATIENT DISCHARGE STA (14:22)
--- NOTE | 2020-03-03 14:24 | Discharge Summary ---
Date of Service March 03, 2020 Admission HPI Per Admitting Provider 4-year-old female past medical history significant for hypertension, mitral regurgitation, Factor 5 Leiden on Eliquis, hyperlipidemia noted to the ED for 3 separate instances of right lower extremity weakness over the last three weeks. Reports that "every time I walk up a hill near my house I started to have right lower extremity weakness and feeling like Jell-O". This sensation goes away after 1 to 2 minutes. Sensation is never occurred when not walking up that hill. Associated with dizziness, headache, shortness of breath, chest pain, numbness or tingling, fevers, chills, constipation or diarrhea, nausea or vomiting. Her PCP today who advised her to come to the ER for acute evaluation. Found to be profoundly hypertensive to 170-180s/90-100s. Asymptomatic in the ED. Baseline lab work normal no electrolyte abnormalities no leukocytosis. 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 Given patient's intermittent weakness with a history of coagulopathy, hospitalist service was consulted for admission. On my interview patient continues to be asymptomatic. Reports that her blood pressure at home is normally 120-130s/70-80s. Has a family history of CVA, CAD. Simvastatin since November for total cholesterol >200. Patient denies smoking, infrequent alcohol use, no illicit drugs. Principal Diagnosis TIA, Right lower extremity weakness Discharge Exam Constitutional WD/WN, vitals as above Eyes PERRL, conjunctivae normal, anicteric sclerae ENMT external ear and nose normal, oropharynx normal Neck trachea midline, no thyromegaly Respiratory normal respiratory effort, lungs clear to auscultation Cardiovascular RRR, no murmur, no edema Chest (Breasts) Chest: normal inspection of chest Gastrointestinal (Abdomen) normal bowel sounds, soft, nontender, no hepatosplenomegaly Musculoskeletal Extremities: extremities normal to inspection; no cyanosis and no clubbing Skin no rashes, warm and dry Neurologic moves all extremities and awake; no focal motor deficits Psychiatric A+Ox3, euthymic affect Lymphatic no lymphedema Discharge Data Allergies Allergy/AdvReac Type Severity Reaction Status Date / Time hydrocodone Allergy Mild rash Verified 03/02/20 20:32 medroxyprogesterone Allergy Mild rash Verified 03/02/20 20:32 oxycodone Allergy Mild rash Verified 03/02/20 20:33 Penicillins Allergy Mild rash Verified 03/02/20 20:33 BEE STINGS Allergy Mild Anaphylaxis Uncoded 03/02/20 20:45 Consultations 03/02/20 19:13 ED Decision to Admit Stat 03/02/20 23:08 Consult Case Management - Discharge Planning Routine Consult Neurology Routine Ordered Studies 03/02/20 16:45 CT angio head w con Stat CT angio neck with con Stat CT head/brain wo con Stat 03/02/20 20:15 MR brain wo/w con Stat 03/03/20 09:11 CT ang AA runof w inc wo ifdon Routine Echocardiogram Hospital Course (1) TIA (transient ischemic attack): 1) Transient right leg weakness: 74-year-old female with past medical history significant for hyperlipidemia, factor V Leiden admitted for right lower extremity weakness. RLE weakness: Appears to be transient; vascular studies were pursued which did not show any significant arterial disease. She has no pain only weakness. This could be a TIA MRI of the brain was negative for stroke. CT angiogram of the head and neck did show a 3 mm aneurysm of the bilateral MCAs which is of no clinical significance at this time. Also with left subclavian artery stenosis which is not causing her any symptoms. Neurology consulted and thought that this was not a peripheral nerve problem, could be a TIA. -Start aspirin 81 mg daily -Continue statin drug -Needs improved blood pressure control which she will discuss with her PCP -She is already on Eliquis for her factor V Leiden -She had no abnormal heart rhythms on telemetry monitoring X-ray of the lumbar spine was negative and again, neurology does not feel this is a peripheral nerve problem -No further neurological testing recommended by neurology Follow-up with primary care physician Cerebral artery aneurysms-should be followed routinely as an outpatient Subclavian artery stenosis: No symptoms suggestive of subclavian steal syndrome on exam. Mitral regurgitation: Systolic murmur noted on exam. With mild mitral regurg seen on echo Factor V Leiden: Continue Eliquis 2.5mg BID. HLD: Atorvastatin as above. Disposition-stable for discharged home (2) Transient right leg weakness: (3) Subclavian artery stenosis, left: (4) Hypertension: (5) Systolic murmur: (6) DVT (deep venous thrombosis): (7) Factor V Leiden: (8) Hyperlipidemia: (9) DVT prophylaxis: Total Time Total Time Spent Total Time Spent (In Minutes): Greater than 30 minutes Total Time Includes: Examination of the Patient, Discharge Planning, Medication Reconciliation and Communication With Other Providers (Neurology) Discharge Plan Discharge Items Patient Disposition: Home - Self-Care Reason For Visit: RLE WEAKNESS Discharge Diagnosis: Possible TIA Condition on Discharge: Good Activity: Resume your previous activity Non-emergency contact: Primary Care Provider and Neurologist Call non-emergency contact if: you have any medication questions and your symptoms worsen Follow-up/Referrals: Urban Broderick MD [Physician] - (Please follow up with Dr. Broderick of Neurology as needed if you continue to have persistent right leg weakness.) Dorene Espino MD [Primary Care Provider] - 03/12/20 11:30 am (Follow up within 1-2 weeks.) Diet: Heart Healthy Addtl Attending Provider Instructions: You were admitted for intermittent right lower extremity weakness. This may be consistent with very short Transient Ischemic Attacks (TIAs), but it is not entirely clear. You had a workup which shoed no stroke on your brain MRI and no major blockages of the blood vessels in your brain. You do have a 50% blockage of the subclavian artery in your chest but this is not causing you a problem. The best way to prevent future TIAs or strokes is to take aspirin 81mg once daily, continue your Eliquis as you are doing, and also to increase your statin drug as tolerated. You should also have improved blood pressure control. As per your wishes, please continue to monitor your blood pressures daily at home and in follow up with Dr. Espino, please discuss the possibility of sta rting on a blood pressure medication. Also, increase your simvastatin to 20mg daily and take Co-Q10 50mg daily along with this to prevent muscle aches. If you continue to have right lower extremity weakness attacks, please request a follow up appointment with Dr. Broderick of Neurology to pursue further evaluation. Risk Factors for Stroke: You can reduce your chances of stroke by working with your medical provider to adopt a healthy lifestyle. Some specific ways to lower your chance of stroke are: * If you are a smoker, now is the time to stop smoking cigarettes * If you are diabetic, improve the control of your blood sugars * Avoid excessive amounts of alcohol * Control high blood pressure * Lose weight if you are overweight * Be sure to lead an active lifestyle * Eat a healthy diet low in salt, cholesterol and fat You should know about other risk factors for stroke that you are unable to control. These include: * Age 55 years or older * Male gender * Certain racial groups: , or / * Family History of Stroke, Mini stroke or Heart Attack * Sickle Cell Disease Follow Up: It is important for you to keep your follow up appointments with your medical provider. Who to Call and When: Medical Emergencies: Call 911 immediately if you experience any of the following warning signs and symptoms of Stroke: * Sudden numbness or weakness of the face, arm or leg, especially on one side of the body * Sudden confusion, trouble speaking or understanding * Sudden trouble seeing in one or both eyes * Sudden trouble walking, dizziness, loss of balance or coordination * Sudden severe headache with no cause Do not delay calling 911 if you experience any warning signs or symptoms of a stroke. Delay in seeking medical attention may affect what treatments can be given to you. . Pending Studies at Discharge: No Stand-Alone Forms: Medications to Prevent Stroke, [facility] Medications and DC Order Prescriptions: New aspirin 81 mg Tablet,Delayed Release (Dr/Ec) 81 mg PO QAM Qty: 30 RF: 0 coenzyme Q10 50 mg capsule 50 mg PO DAILY Qty: 30 RF: 0 Continued Eliquis 2.5 mg tablet 2.5 mg PO BID Qty: 180 RF: 3 [id number] serr [Glucosamine Daily Complex] 1,500-400-100 mg-unit-mg Tablet 1 tab PO DAILY RF: 0 cyanocobalamin (vitamin B-12) 500 mcg Tablet 500 mcg PO DAILY RF: 0 vitamin E 400 unit Capsule 400 unit PO DAILY RF: 0 Changed simvastatin 10 mg tablet 20 mg PO QPM Qty: 90 RF: 3 Discharge Orders: Discharge Order (Routine); Ordered 03/03/20 Ordered By: Gely Sargent Admission Data Admit Date/Time: 03/02/20 20:15 Attending Provider: Gely Sargent Admit Provider: Robina Barba Primary Care Provider: Dorene Espion Other Providers: Lamont Weaver Emile Other Interventions: Discharge Summary Assessment (RN) Last Done: 03/03/20 14:40 DC Date/Time DO NOT enter until pt leaves facility: 03/03/20 16:50 Coding Level of Care Code 19934 OBS Care - Discharge Diagnoses TIA (transient ischemic attack) G45.9 Transient right leg weakness R29.898 Subclavian artery stenosis, left I77.1 Hypertension I10 Systolic murmur R01.1 DVT (deep venous thrombosis) I82.409 Factor V Leiden D68.51 Hyperlipidemia E78.5 DVT prophylaxis Z29.9
--- NOTE | 2020-03-03 14:49 | Pharmacy Report ---
Pharmacist Stroke Counseling - Date of Service March 03, 2020 - Scope: Pharmacy has been consulted to provide medication discharge counseling for this patient admitted with possible TIA as per the Pharmacist Discharge Counseling for Stroke Patients Protocol. - Medications on Discharge: Home Medications Medication Instructions Recorded Confirmed cyanocobalamin (vitamin B-12) 500 mcg PO DAILY 03/02/20 03/02/20 [id number] 1 tab PO DAILY 03/02/20 03/02/20 [Glucosamine Daily Complex] vitamin E 400 unit PO DAILY 03/02/20 03/02/20 New Rx's Medication Instructions Recorded apixaban 2.5 mg tablet 2.5 mg PO BID #180 tab 02/14/20 aspirin 81 mg PO QAM #30 tab 03/03/20 coenzyme Q10 50 mg PO DAILY #30 cap 03/03/20 simvastatin 20 mg PO QPM #90 tab 03/03/20 - Action: The above medications, specifically ones for stroke treatment/prophylaxis, have been reviewed in detail with the patient prior to discharge. This includes indication, common adverse reactions, drug interactions, and medication administration. Medication counseling has been employed using the teach-back method to ensure understanding. - Outcome: The patient demonstrated understanding of the medications. Additional comments: - Counseling completed via telephone secondary to COVID-19 pandemic - Patient was previously on aspirin so she was familiar with the medication - Patient was given ample time to have any/all questions answered Thank you for allowing pharmacy to be involved in the care of this patient. Please call [phone] with any additional questions
--- NOTE | 2020-03-05 01:13 | Billing Data ---
Date of Service March 05, 2020 Coding Level of Care Code 86363 Initial Inpt Care Lvl 3
[2020-03-05 10:32] LABS: iSTAT Potassium 4.2 mmol/L (3.3-5.0)
[2020-03-05 10:33] LABS: iSTAT Creatinine 1.1 mg/dl (0.6-1.3); iSTAT Hemoglobin 13.9 g/dl (12.0-16.0); iSTAT Ionized Calcium 1.18 mmol/l (1.12-1.32)
== END 2020-03-03 16:50 | disposition home or self-care (01) ==
LOC: ED 16:12 → 2W 16:12 → SUATTDRO 20:15 → 2W 22:14